=== PATIENT | female | born 1995 | race American Indian/Alaskan Native ===

== ENCOUNTER 2019-11-10 16:33 | Outpatient (CLI) | payer MEDICAID ==
[2019-11-10 17:02] VITALS: BP 107/55
== END 2019-11-10 17:05 | disposition home or self-care (01) ==
LOC: TRG 16:33
PROVIDERS: ATTEND Obstetrics & Gynecology
DX: O42.912 Preterm premature rupture of membranes, unspecified as to length of time between rupture and onset of labor, second trimester (principal); Z3A.24 24 weeks gestation of pregnancy